=== PATIENT | female | born 1980 | race Caucasian/White ===

== ENCOUNTER 2017-10-02 19:52 | Emergency (ER) | payer BC ==
[2017-10-02 20:14] VITALS: BP 111/57
[2017-10-02] MEDS ORDERED: Lidocaine 1% MPF* 2 ML VIAL INJ ONE (20:48)
--- NOTE | 2017-10-02 21:14 | UC ---
Laceration HPI - HPI Summary HPI Summary: Patient present with laceration of the right upper side of her forehead. She slipped on her hardwood floor and fell into the corner of the coffee table, and cut her head. She denies any LOC, not on blood thinners, and denies blurred vision, neck pain,or vomiting. She complains of headache on the side of the head where she cut her head. Denies any numbness, weakness, or any other joint pain or injury associated with the fall.She states her tetanus is up to date. - History Of Current Complaint Chief Complaint: UCHeadInjury Stated Complaint: HEAD LACERATION Time Seen by Provider: 10/02/17 20:44 Hx Obtained From: Patient Hx Last Menstrual Period: IRREGULAR (IUD) Laceration Location: Face Mechanism Of Injury: Blunt Trauma Severity: Mild - Allergies/Home Medications Allergies/Adverse Reactions: Allergies Allergy/AdvReac Type Severity Reaction Status Date / Time Penicillins Allergy Severe DROWSY Verified 10/02/17 20:14 ANESTHESIA Allergy Severe INCREASED Uncoded 10/02/17 20:14 DROWSINESS/DIFFICULTY WAKING Home Medications: Home Medications NK [No Home Medications Reported] 10/02/17 [History Confirmed 10/02/17] PMH/Surg Hx/FS Hx/Imm Hx Previously Healthy: Yes - Surgical History Surgical History: Yes Surgery Procedure, Year, and Place: LEFT HIP REPLACEMENT, MULTIPLE SURGERIES ( "TOO MANY TO LIST") - Family History Known Family History: Positive: None - Social History Occupation: Employed Full-time Lives: Alone Alcohol Use: Occasionally Substance Use Type: None Smoking Status (MU): Never Smoked Tobacco - Immunization History Most Recent Tetanus Shot: <5 YEARS ( OF 10/02/17) Review of Systems Constitutional: Negative Skin: Negative Eyes: Negative ENT: Negative Respiratory: Negative Cardiovascular: Negative Gastrointestinal: Negative Genitourinary: Negative Motor: Negative Musculoskeletal: Negative Neurological: Negative Psychological: Negative All Other Systems Reviewed And Are Negative: Yes Physical Exam Triage Information Reviewed: Yes Appearance: Well-Appearing Vital Signs: Initial Vital Signs Temp 98.1 F 10/02/17 20:09 Pulse 67 10/02/17 20:09 Resp 16 10/02/17 20:09 BP 111/57 10/02/17 20:09 Pulse Ox 100 10/02/17 20:09 Vital Signs Reviewed: Yes Eye Exam: Normal ENT Exam: Normal Dental Exam: Normal Neck exam: Normal Neck: Positive: 1 Respiratory Exam: Normal Cardiovascular Exam: Normal Abdominal Exam: Normal Musculoskeletal Exam: Normal Neurological Exam: Normal Skin: Positive: Other - 3.0 cm laceration on right side of forehead, involving the epithelial tissue, and partially penetrates the demal tissue. no muscle tendon or bone. no foreign body noted. small contusion noted. Laceration Course/Dx - Course/Dx Course Of Treatment: Patient presents with laceration to the right side of forehead, bleeding controlled, no LOC reported, normal neuro exam. concent obtained and time out performed, options to close were discussed, I recommended suture for best results and patient agreed. 1% lidocaine used, wound cleaned with betadine, a bloodless woundbed was inspected, no muscle tendon or bone, and patient did not sense any foreign body in the wound. and three simple interrupted sutures were placed.patient tolerated the procedure well. wound care discussed including keep the area clean and dry,monitor for sign of infection, increased redness, pain, warmth and drainage reviewed and if this were to occurr she would need immediately re-evaluation. I also discussed with the patient that is she develops headache, nausea or vomiting she would need to have immediatly re-evauation. She verbalized understanding and was in agreement with the discharge plan. - Differential Dx - Laceration/Wound Differental Diagnoses: Laceration, Other - suture care Provider Diagnoses: laceration. suture care Discharge - Discharge Plan Condition: Stable Disposition: HOME Patient Education Materials: Laceration (ED), Care For Your Stitches (ED) Referrals: Alin Pruett MD [Primary Care Provider] -
== END 2017-10-02 21:00 | disposition home or self-care (01) ==
LOC: UCEAST 19:52
DX: S01.81XA Laceration without foreign body of other part of head, initial encounter (principal); W01.190A Fall on same level from slipping, tripping and stumbling with subsequent striking against furniture, initial encounter; Y92.9 Unspecified place or not applicable; Z88.0 Allergy status to penicillin; Z88.4 Allergy status to anesthetic agent
CPT/HCPCS: 12001; 12011; 12013; 99211; G0463